=== PATIENT | female | born 1990 | race Caucasian/White ===

== ENCOUNTER 2018-09-13 08:50 | Outpatient (CLI) | payer MEDICAID, SELFPAY ==
[2018-09-13 10:13] LABS: Abs Immature Grans 0.01 k/cumm (0.0-0.09); Absolute Basophil Count 0.03 k/cumm (0.0-0.2); Absolute Eosinophil Count 0.13 k/cumm (0.0-0.7); Absolute Lymphocyte Count 1.87 k/cumm (1.2-3.4); Absolute Monocyte Count 0.39 k/cumm (0.11-0.7); Absolute Neutrophil Count 2.01 k/cumm (1.2-6.7); Basophils % 0.7; Eosinophils % 2.9; HGB 13.7 g/dL (12.0-15.5); Immature Grans % 0.2; Lymphocytes % 42.1; Mean Corp. HGB Concentration 32.6 g/dL (32.0-36.0); Mean Platelet Volume 10.2 fL (8.0-11.0); Monocytes % 8.8; Neutrophils % 45.3; Platelet Count 244 x1000/uL (130-400); RBC 4.72 m/cumm (4.00-5.20); RBC Distribution Width 12.2 % (11.7-14.6); White Blood Cell Count 4.44 k/cumm (4.4-10.8)
[2018-09-13 10:53] LABS: ALT 33 U/L (12-78); AST 19 U/L (15-37); Albumin 3.4 g/dL (3.4-5.0); Alkaline Phosphatase 133 U/L (46-116); Anion Gap 9.2 mmol/L (3-11); BUN 14 mg/dL (7-18); Bilirubin, Total 0.2 mg/dL (0.2-1.0); CO2 25.8 mmol/L (21.0-32.0); CREATININE 0.65 mg/dL (0.55-1.02); Calcium 8.6 mg/dL (8.5-10.1); Chloride 107 mmol/L (98-107); Cholesterol 132 mg/dL (50-200); Glucose 90 mg/dL (70-100); HDL Cholesterol 38 mg/dL (40-60); LDL CHOLESTEROL 86 mg/dL (<100); Potassium 4.1 mmol/L (3.5-5.1); Sodium 142 mmol/L (136-145); T4 9.8 ug/dL (4.5-12.5); TSH 1.64 uIU/mL (0.358-3.74); Total Protein 6.9 g/dL (6.4-8.2); Triglyceride 78 mg/dL (30-150)
[2018-09-13 11:08] LABS: Vitamin B12 622 pg/mL (193-986)
[2018-09-13 11:13] LABS: FREE T4 1.09 ng/dL (0.76-1.46)
== END 2018-09-13 09:10 ==
PROVIDERS: PCP Family Medicine; Visit Provider Nurse Practitioner Psychiatric/Mental Health
DX: F43.10 Post-traumatic stress disorder, unspecified (principal)
CPT/HCPCS: 36415; 80053; 80061; 83721; 82607; 84436; 84439; 84443; 85025

== ENCOUNTER 2018-10-07 09:17 | Emergency (ER) | payer MEDICAID, SELFPAY ==
[2018-10-07 09:21] VITALS: BP 154/98; PULSE 96; RESP 16; TEMP 36.7; O2SAT 97
--- NOTE | 2018-10-07 09:21 | ED.GENADUL_ITS ---
Discharge Plan Disposition Patient Disposition: HOME Condition: Good Discharge Details Chief Complaint: RashLesion Clinical Impression: Abscess of Bartholin's gland Primary Care Provider: Catalina Maldonado ED Provider: Ben Silvestre Home Meds and New Rx's Prescriptions: New doxycycline hyclate 100 mg capsule 100 mg PO BID Qty: 14 RF: 0 fluconazole 150 mg tablet 150 mg PO ONCE Qty: 1 RF: 0 No Action Implanon 1 unit RF: 0 hydroxyzine HCl 25 mg Tablet 25 mg PO BID RF: 0 lisdexamfetamine [Vyvanse] 60 mg Capsule 60 mg PO QAM RF: 0 Discharge Instructions Instructions: Abscess (ED) Additional Instructions: Please take the antibiotic as directed, please take Tylenol and Motrin as needed for pain. Please follow-up with the obstetrics production pattern maker that we are setting you up with. If you notice any worsening of your symptoms, or any new symptoms such as vomiting, diarrhea, fever, chills, shortness of breath, chest pain, numbness, weakness, or fainting , please return immediately to the emergency department for reevaluation. Please follow up with your primary care provider as soon as possible for reassessment and reevaluation. As always, it was a pleasure participating in your medical care today. Referrals: Catalina Maldonado [Primary Care Provider] - Medical Decision Making This is a pleasant 28-year-old female with a past medical history of hidradenitis supra T Melissa. She presents today for an abscess on her left labia. She has had these in the past, however it has now become firm and hard. Patient denies any red flag systemic symptoms of fevers, chills, or tachycardia. Physical exam is otherwise benign. We will incise and drain the abscess, place a Word catheter, and get close follow-up with her obstetrics production pattern maker. Time out was taken to identify the correct patient, procedure, and site. Risks and benefits were discussed with the patient and consent was obtained. Ultrasound was used to locate the site of maximal fluid collection. The site was sterilized and draped in the typical fashion. Lidocaine 1% 5ml was instilled into the surrounding tissue. Appropriate analgesia was obtained. The abscess was incised with an 11 blade, and purulent material and blood were expressed. The wound was flushed with sterile saline under pressure irrigation. I initially attempted to place a Word catheter, however the patient would not tolerate this and felt that there was too much pain and pressure with the presence of the Word catheter, and so packed, cleaned, and dressed the wound with iodoform gauze. Blood loss was minimal. The patient tolerated the procedure well. There were no complications. Patient will be discharged home. We will set her up with OB follow-up. We discussed red flags which return patient understands. I have extensively reviewed the treatment plan and discharge instructions with the patient. I have addressed all patient concerns at this time. The patient was made aware of what symptoms to monitor for that would warrant a return to the emergency department. Discussed the plan with the patient, they demonstrate verbal understanding and agreement with our assessment and plan at this time. HPI General Date/Time Provider Initiated Documentation: 10/07/18 09:19 . HPI Narrative: This is a 28-year-old female with a past medical history of hidradenitis suprativa who presents today for evaluation of left labial abscess. She states that it is been present for the last 3 days, has had some yellowish greenish discharge, however over the last 12-24 hours it is notably grown in size, become mildly painful, and firm. She denies any systemic symptoms of fevers, chills, vomiting, diarrhea, vaginal discharge. She admits to previous episodes like this in the past secondary to her HS. patient denies any other associated symptoms. No other modifying factors. She denies any IV or illicit drug use. Related Data Home Medications Medication Instructions Recorded Confirmed Implanon 1 unit 10/22/15 11/30/15 doxycycline hyclate 100 mg PO BID #14 cap 10/07/18 fluconazole 150 mg PO ONCE #1 tab 10/07/18 hydroxyzine HCl 25 mg PO BID 10/07/18 10/07/18 lisdexamfetamine [Vyvanse] 60 mg PO QAM 10/07/18 10/07/18 Previous Rx's Medication Instructions Recorded doxycycline hyclate 100 mg PO BID #14 cap 10/07/18 fluconazole 150 mg PO ONCE #1 tab 10/07/18 Allergies Allergy/AdvReac Type Severity Reaction Status Date / Time SPIDER BITES Allergy Mild Swelling/Ed Uncoded 10/07/18 09:26 christiano Review of Systems Review of Systems All systems reviewed & are unremarkable except as noted in HPI and below PFSH Social History Smoking/Tobacco Use Status: Current-Occasional Exam Narrative Exam Narrative: 1.Const: Well-nourished, Well-developed, appearing stated age 2.Eyes: PERRL, no conjunctival injection, and symmetrical lids. 3.ENT: Atraumatic external nose and ears. Moist MM. Neck: Symmetric, trachea midline, No thyromegaly. 4.CVS: +S1/S2, No murmurs or gallops. Peripheral pulses 2+ and equal in all extremities. Brisk capillary refill in all extremities. 5.RESP: Unlabored respiratory effort. Clear to auscultation bilaterally. No wheezes rales or rhonchi 6.GI: Soft, Nontender/Nondistended, No hepatosplenomegaly. No guarding or rebound. 7.MSK: Normocephalic/Atraumatic, Extremities w/o deformity or ttp No cyanosis or clubbing, Normal movement of all extremities 8.Skin: Warm, Dry. No rashes or lesions. 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 Sensation grossly intact, no focal neurologic deficits. 10.Psych: (AAO) x3. Appropriate mood and affect Genital exam was performed with female nurse at bedside, genital exam demonstrates normal female genitalia with a small evidence of a Bartholin gland cyst/abscess. The area is tender. No active discharge at this time. The area is roughly 1.5 cm in diameter. No other abnormalities.
== END 2018-10-07 10:32 | disposition home or self-care (01) ==
LOC: ER 09:58
PROVIDERS: Emergency Provider Student in an Organized Health Care Education/Training Program; PCP Family Medicine
DX: N75.1 Abscess of Bartholin's gland (principal)
CPT/HCPCS: 10060; 87070; 87205

== ENCOUNTER 2018-11-29 12:45 | Emergency (ER) | payer MEDICAID, SELFPAY ==
[2018-11-29 12:53] VITALS: BP 137/90; PULSE 115; RESP 16; TEMP 37; O2SAT 98
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
== END 2018-11-29 13:39 | disposition home or self-care (01) ==
PROVIDERS: Emergency Provider Student in an Organized Health Care Education/Training Program; PCP Family Medicine
DX: R51 Headache (principal)
CPT/HCPCS: 99282

== ENCOUNTER 2019-01-18 11:31 | Outpatient (CLI) | payer MEDICAID, SELFPAY ==
--- NOTE | 2019-01-18 10:05 | NS.NUTBLAN_ITS ---
DESCRIPTION: Jordy Delgado presents with her son for nutrition consult for severe obesity and binge eating. She reports a history of all eating disorders including anorexia, bulimia, and now binge etaing disorders. She has had an elevated BMI most of her life. 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 Nutrition: Jordy describes eating everything, what she wants, and beyond fullness regularly. If there is food she doesn't want, she will drive to get what she wants. She describes not being able to recognize when to stop eating. Exercise: she states she can walk long distances but does not do strenuous exercise. She is limited now because there is no safe place to walk. Stress: Jordy reports high stress with separation, living with her family, finances, and ADD and h/o of self described trauma. ASSESSMENT/INTERVENTION: Introduction and getting to know Jordy and her food relationship and history. She was highly expressive regarding her situation and admitted her ADD was taking over the visit. Discussed her previous episodes with eating disorders and how she was helped. Initiated concept of mindful eating with identifying and paying attention to hunger/fullness. Described ways we feel hunger and asked her to think about what is motivating her to eat. Discussed distracted eating and paying attention to where and how she eats. PLAN: Jordy will pay attention to where her hunger comes from. She will attempt to identify her hunger on a scale when she thinks about eating. She wishes to return in 1 week.
== END 2019-01-18 11:51 ==
PROVIDERS: PCP Family Medicine; Visit Provider Dietitian, Registered
DX: F50.81 Binge eating disorder (principal); E66.9 Obesity, unspecified; Z71.3 Dietary counseling and surveillance
CPT/HCPCS: 97802

== ENCOUNTER 2019-03-02 09:23 | Emergency (ER) | payer MEDICAID, SELFPAY ==
[2019-03-02 09:26] VITALS: BP 155/72; PULSE 96; RESP 20; TEMP 36.9; O2SAT 99
--- NOTE | 2019-03-02 09:49 | W.ED.GENAD ---
Discharge Plan Disposition Patient Disposition: HOME Condition: Improving Discharge Details Chief Complaint: Cellulitis Clinical Impression: Axillary hidradenitis suppurativa Primary Care Provider: None,None ED Provider: Vipul Delarosa Home Meds and New Rx's Prescriptions: New cephalexin 500 mg capsule 500 mg PO TID 7 Days Qty: 21 RF: 0 Continued Implanon 1 unit RF: 0 [id number]-d-glucosamine Powder 1 miscellaneous DAILY RF: 0 Discharge Instructions Additional Instructions: Apply moist warm heat to area to speed healing. We will refer you for follow-up in surgery clinic. Take antibiotics as prescribed. Return for worsening or any other acute concern Medical Decision Making 28-year-old female with a history of hidradenitis suppurtiva. She presents with left axilla discomfort and mild area of 1-2 cm nodularity that is firm. There is no overlying erythema and I do not appreciate fluctuance. Discussed with her that I feel she is best served by a course of oral antibiotic and application of warm heat. She may benefit from referral to surgery in the outpatient setting for definitive management. She understands homecare as well as return precautions. HPI General Mode of arrival: ambulatory. Date/Time Provider Initiated Documentation: 03/02/19 09:35. Limitations to Documentation: no limitations. Information obtained by: patient. History of Present Illness 28 year old F presents to the emergency department with the chief complaint of Left axilla pain, described as similar to prior episodes, Quality is described as dull, and is localized to the chest and left. Patient reports no radiation. Patient started experiencing this day(s) and it has been constant. No relieving factors improve symptom(s), No exacerbating factors reported . Patient notes other (No drainage); denies fever/chills and rash. Patient did receive the following treatments prior to arrival, none Related Data Home Medications Medication Instructions Recorded Confirmed Implanon 1 unit 10/22/15 10/08/18 cephalexin 500 mg PO TID 7 Days #21 cap 03/02/19 [id number]-d-glucosamine 1 MISCELLANEOUS DAILY 03/02/19 Previous Rx's Medication Instructions Recorded cephalexin 500 mg PO TID 7 Days #21 cap 03/02/19 Allergies Allergy/AdvReac Type Severity Reaction Status Date / Time SPIDER BITES Allergy Mild Swelling/Ed Uncoded 03/02/19 09:32 christiano General Stated Complaint: Cellulitis NORMA: 3 Review of Systems Review of Systems 6 systems reviewed and otherwise negative [facility] Medical History Attention deficit disorder (ADD) (Acute) HELLP syndrome (HELLP), third trimester (Acute) Hidradenitis suppurativa (Acute) PTSD (post-traumatic stress disorder) (Acute) Anxiety (Chronic) Depression (Chronic) Surgical History History of (Chronic) Social History Smoking/Tobacco Use Status: Former Tobacco Use Alcohol Intake: never Drug use: Never Substance use type: former substance user Do you feel safe at home: Yes Do you feel safe in your relationship?: Yes Exam Narrative Exam Narrative: GEN: awake, alert, oriented 3. Pleasant, well groomed, interactive. HEAD: Normocephalic, atraumatic ENT: Mucous membranes moist, oropharynx unremarkable, External ear exam unremarkable EYES: PERRL, EOMI NECK: Full ROM, no AUDI, no menigismus CHEST/RESP: Nontender, clear to auscultation bilateral, no wheeze/rhonchi/rales. Left axilla has mild nodularity that is tender without significant overlying erythema. She has healing scar tissue from previous incision and drainage per I do not appreciate significant fluctuance. There is some induration. CARDIOVASCULAR: RRR, no murmur, rub cyn. 2+ Rad pulse bilateral ABDOMEN: Soft, nontender, no mass. +Bowel sounds EXT: Full ROM, no edema, no rash Neuro: Grossly normal neurologic exam, conversant, interactive. Psych: Speech fluent, thoughts congruent, affect normal Course Vital Signs Temperature 36.9 C 03/02/19 09:26 Pulse 96 H 03/02/19 09:26 Respiratory Rate 20 03/02/19 09:26 Blood Pressure 155/72 H 03/02/19 09:26 Pulse Oximetry 99 03/02/19 09:26 Temperature 36.9 C 03/02/19 09:26 Temperature Source Temporal Artery Scan 03/02/19 09:26 Pulse 96 H 03/02/19 09:26 Respiratory Rate 20 03/02/19 09:26 Respiratory Effort Non-Labored 03/02/19 09:26 Blood Pressure 155/72 H 03/02/19 09:26 Blood Pressure Position Sitting 03/02/19 09:26 Pulse Oximetry 99 03/02/19 09:26 Oxygen Delivery Method Room Air 03/02/19 09:26 Oxygen Flow Rate 0 03/02/19 09:26 Pain Level 8 03/02/19 09:26
--- NOTE | 2019-03-02 09:54 | ED.GENADUL_ITS ---
Discharge Plan Disposition Patient Disposition: HOME Condition: Improving Discharge Details Chief Complaint: Cellulitis Clinical Impression: Axillary hidradenitis suppurativa Primary Care Provider: None,None ED Provider: Vipul Delarosa Home Meds and New Rx's Prescriptions: New cephalexin 500 mg capsule 500 mg PO TID 7 Days Qty: 21 RF: 0 Continued Implanon 1 unit RF: 0 v-cstrmt-smloa-d-glucosamine Powder 1 miscellaneous DAILY RF: 0 Discharge Instructions Additional Instructions: Apply moist warm heat to area to speed healing. We will refer you for follow-up in surgery clinic. Take antibiotics as prescribed. Return for worsening or any other acute concern Medical Decision Making 28-year-old female with a history of hidradenitis suppurtiva. She presents with left axilla discomfort and mild area of 1-2 cm nodularity that is firm. There is no overlying erythema and I do not appreciate fluctuance. Discussed with her that I feel she is best served by a course of oral antibiotic and application of warm heat. She may benefit from referral to surgery in the outpatient setting for definitive management. She understands homecare as well as return precautions. HPI General Mode of arrival: ambulatory . Date/Time Provider Initiated Documentation: 03/02/19 09:35 . Limitations to Documentation: no limitations . Information obtained by: patient . History of Present Illness 28 year old F presents to the emergency department with the chief complaint of Left axilla pain, described as similar to prior episodes, Quality is described as dull, and is localized to the chest and left. Patient reports no radiation. Patient started experiencing this day(s) and it has been constant. No relieving factors improve symptom(s), No exacerbating factors reported . Patient notes other (No drainage); denies fever/chills and rash. Patient did receive the following treatments prior to arrival, none Related Data Home Medications Medication Instructions Recorded Confirmed Implanon 1 unit 10/22/15 10/08/18 cephalexin 500 mg PO TID 7 Days #21 cap 03/02/19 h-fbqaxb-jmulj-d-glucosamine 1 MISCELLANEOUS DAILY 03/02/19 Previous Rx's Medication Instructions Recorded cephalexin 500 mg PO TID 7 Days #21 cap 03/02/19 Allergies Allergy/AdvReac Type Severity Reaction Status Date / Time SPIDER BITES Allergy Mild Swelling/Ed Uncoded 03/02/19 09:32 christiano General Stated Complaint: Cellulitis NORMA: 3 Review of Systems Review of Systems 6 systems reviewed and otherwise negative [facility] Medical History Attention deficit disorder (ADD) (Acute) HELLP syndrome (HELLP), third trimester (Acute) Hidradenitis suppurativa (Acute) PTSD (post-traumatic stress disorder) (Acute) Anxiety (Chronic) Depression (Chronic) Surgical History History of (Chronic) Social History Smoking/Tobacco Use Status: Former Tobacco Use Alcohol Intake: never Drug use: Never Substance use type: former substance user Do you feel safe at home: Yes Do you feel safe in your relationship?: Yes Exam Narrative Exam Narrative: GEN: awake, alert, oriented 3. Pleasant, well groomed, interactive. HEAD: Normocephalic, atraumatic ENT: Mucous membranes moist, oropharynx unremarkable, External ear exam unremarkable EYES: PERRL, EOMI NECK: Full ROM, no AUDI, no menigismus CHEST/RESP: Nontender, clear to auscultation bilateral, no wheeze/rhonchi/rales. Left axilla has mild nodularity that is tender without significant overlying erythema. She has healing scar tissue from previous incision and drainage per I do not appreciate significant fluctuance. There is some induration. CARDIOVASCULAR: RRR, no murmur, rub cyn. 2+ Rad pulse bilateral ABDOMEN: Soft, nontender, no mass. +Bowel sounds EXT: Full ROM, no edema, no rash Neuro: Grossly normal neurologic exam, conversant, interactive. Psych: Speech fluent, thoughts congruent, affect normal Course Vital Signs Temperature 36.9 C 03/02/19 09:26 Pulse 96 H 03/02/19 09:26 Respiratory Rate 20 03/02/19 09:26 Blood Pressure 155/72 H 03/02/19 09:26 Pulse Oximetry 99 03/02/19 09:26 Temperature 36.9 C 03/02/19 09:26 Temperature Source Temporal Artery Scan 03/02/19 09:26 Pulse 96 H 03/02/19 09:26 Respiratory Rate 20 03/02/19 09:26 Respiratory Effort Non-Labored 03/02/19 09:26 Blood Pressure 155/72 H 03/02/19 09:26 Blood Pressure Position Sitting 03/02/19 09:26 Pulse Oximetry 99 03/02/19 09:26 Oxygen Delivery Method Room Air 03/02/19 09:26 Oxygen Flow Rate 0 03/02/19 09:26 Pain Level 8 03/02/19 09:26
[2019-03-02 15:54] VITALS: BP 155/72; PULSE 96; RESP 20; TEMP 36.9; O2SAT 99
--- NOTE | 2019-03-03 08:29 | PDOC.ERCMPRO ---
Care Management Progress Note 03/03-Dr. Delarosa requested assistance with a surgical f/u in 1-2 week for hydra adenitis suppurtiva. Referral faxed to [facility] this am. Patient is listed as no PCP but has been seen at [facility] and can go back there. Chart updated to reflect.
--- NOTE | 2019-03-03 08:30 | CMPROGNOTE_ITS ---
Care Management Progress Note 03/03-Dr. Delarosa requested assistance with a surgical f/u in 1-2 week for hydra adenitis suppurtiva. Referral faxed to [facility] this am. Patient is listed as no PCP but has been seen at [facility] and can go back there. Chart updated to reflect.
== END 2019-03-02 10:05 | disposition home or self-care (01) ==
PROVIDERS: Emergency Provider Emergency Medicine; PCP Nurse Practitioner Family
DX: L73.2 Hidradenitis suppurativa (principal)
CPT/HCPCS: 99283

== ENCOUNTER 2019-06-13 15:21 | Emergency (ER) | payer MEDICAID, SELFPAY ==
[2019-06-13 15:30] VITALS: BP 152/91; PULSE 77; RESP 16; TEMP 36.5; O2SAT 97
--- NOTE | 2019-06-13 15:41 | W.ED.GENAD ---
Discharge Plan Disposition Patient Disposition: HOME Condition: Stable Discharge Details Chief Complaint: Laceration Clinical Impression: Leg wound, right Primary Care Provider: Priscila,Local ED Provider: Vinicio Zelaya Home Meds and New Rx's Prescriptions: No Action Implanon 1 unit RF: 0 Discharge Instructions Additional Instructions: keep the wound covered while it is healing with a large band aid. if it bleeds hold pressure if redness spreads away from the wound, you have severe pain or yellow/white discharge return to the emergency department Medical Decision Making 28 yo female comes in with right lateral mid lower leg wound. She states her significant other decided he didn't want to use disposable one time use shaving blades and put them in the garbage which she wasn't aware of. She was taking the trash out last night and one of the blades caused the wound in her leg, no loc or other injuries. Her mother was concerned about it today so told her to come here for an eval. She has a superficial abrasion of the above area that is about 2cm in length and not deep enough to need stitches. ADvised covering prn and if signs of infection develop to return Differential Diagnosis abrasion, laceration HPI General Mode of arrival: ambulatory. Date/Time Provider Initiated Documentation: 06/13/19 15:35. Limitations to Documentation: no limitations. Information obtained by: patient. History of Present Illness 28 year old F presents to the emergency department with the chief complaint of right leg wound, described as mild, with intensity rated at 2. Quality is described as aching, and is localized to the right and lower extremity. Patient reports no radiation. Patient started experiencing this day(s) (1) and it has been constant. No relieving factors improve symptom(s), No exacerbating factors reported . Patient notes no other symptoms.. Patient did receive the following treatments prior to arrival, none Related Data Home Medications Medication Instructions Recorded Confirmed Implanon 1 unit 10/22/15 03/21/19 Allergies Allergy/AdvReac Type Severity Reaction Status Date / Time SPIDER BITES Allergy Mild Swelling/Ed Uncoded 06/13/19 15:32 christiano General Stated Complaint: Laceration NORMA: 4 Review of Systems Review of Systems All systems reviewed & are unremarkable except as noted in HPI and below Constitutional Denies chills, Denies fever(s) and Denies weakness Cardiovascular Denies chest pain and Denies dyspnea Respiratory Denies dyspnea Gastrointestinal Denies abdominal pain, Denies nausea and Denies vomiting Musculoskeletal Denies joint swelling Neurologic Denies weakness [facility] Medical History (Updated 03/21/19 @ 16:43 by Leann Camilo DO) Anxiety (Chronic) Attention deficit disorder (ADD) (Acute) Depression (Chronic) HELLP syndrome (HELLP), third trimester (Acute) Hidradenitis suppurativa (Acute) Hidradenitis suppurativa (Acute) PTSD (post-traumatic stress disorder) (Acute) Surgical History History of (Chronic) Social History Smoking/Tobacco Use Status: Former Tobacco Use Alcohol Intake: never Drug use: Never Substance use type: former substance user Do you feel safe at home: Yes Do you feel safe in your relationship?: Yes Exam Const General: no acute distress Orientation: alert HENMT Head: normal to inspection Ears: external ears normal General nose exam: external nose normal Mouth: moist mucous membranes Eyes General: appearance normal, both eyes and all related structures Neck Neck: normal visual inspection Resp Effort & Inspection: normal respiratory effort and able to speak in complete sentences Cardio Rate: regular rate Skin General skin exam: elasticity normal Neuro General: alert and oriented x3 Extrem General: normal to inspection Psych Mental Status: mental status grossly normal Course Vital Signs Temperature 36.5 C 06/13/19 15:30 Pulse 77 06/13/19 15:30 Respiratory Rate 16 06/13/19 15:30 Blood Pressure 152/91 H 06/13/19 15:30 Pulse Oximetry 97 06/13/19 15:30 Temperature 36.5 C 06/13/19 15:30 Temperature Source Skin 06/13/19 15:30 Pulse 77 06/13/19 15:30 Respiratory Rate 16 06/13/19 15:30 Respiratory Effort Non-Labored 06/13/19 15:30 Blood Pressure 152/91 H 06/13/19 15:30 Blood Pressure Position Supine 06/13/19 15:30 Pulse Oximetry 97 06/13/19 15:30 Oxygen Delivery Method Room Air 06/13/19 15:30 Oxygen Flow Rate 0 06/13/19 15:30 Pain Level 2 06/13/19 15:30
== END 2019-06-13 16:00 | disposition home or self-care (01) ==
PROVIDERS: Emergency Provider Emergency Medicine
DX: S81.811A Laceration without foreign body, right lower leg, initial encounter (principal); W26.8XXA Contact with other sharp object(s), not elsewhere classified, initial encounter
CPT/HCPCS: 90471; 99282

== ENCOUNTER 2019-11-28 07:26 | Emergency (ER) | payer MEDICAID, SELFPAY ==
[2019-11-28 07:31] VITALS: BP 161/78; PULSE 73; RESP 16; TEMP 37; O2SAT 98
--- NOTE | 2019-11-28 07:39 | W.ED.GENAD ---
Discharge Plan Disposition Patient Disposition: HOME Condition: Stable Discharge Details Chief Complaint: Anxiety Clinical Impression: Depression Primary Care Provider: None,None ED Provider: Chelsy James Home Meds and New Rx's Prescriptions: New venlafaxine 37.5 mg capsule,extended release 24hr 37.5 mg PO DAILY Qty: 30 RF: 0 lorazepam [Ativan] 0.5 mg tablet 0.5 mg PO QHS PRN (Reason: anxiety) Qty: 4 RF: 0 Continued Implanon 1 unit RF: 0 Discharge Instructions Instructions: Lorazepam (By mouth), Venlafaxine (By mouth), Depression (ED), Anxiety (ED), Anxiolysis in Adults (ED) Additional Instructions: Please return immediately to the emergency department if you develop any new or worsening symptoms, if your condition does not improve as expected, or if you become otherwise concerned. It is extremely important that you attend your appointment with Gloria Borja at [facility] on 12/02/2019 at 1:15 PM as scheduled. You have been prescribed Ativan to help with anxiety at bedtime. This is a sedating medication, and it is very important that you take it only as prescribed. Please do not take Ativan within 6 hours of taking any other sedating or sleep medications, including opiate pain medications. Do not use alcohol or any other recreational drugs well taking Ativan. Do not drive, operate machinery, or make important decisions while taking Ativan. Referrals: Gloria Borja [NURSE PRACTITIONER] - Discharge Data Discharge Date/Time-TO BE ENTERED AT DEPARTURE: 11/28/19 13:40 Medical Decision Making Jordy Delgado is a 29-year-old woman with a history of anxiety, depression, tension deficit disorder, GERD who presented to the emergency department with worsening of her anxiety and depression over the past few months, reportedly worsened by recent financial problems. On exam patient is well and nontoxic appearing. She has benign cardiopulmonary exam. Neurologic exam is grossly nonfocal. She is calm and pleasant with good eye contact, does have somewhat depressed mood. Normal behavior. No suicidal or homicidal ideation. Patient has decision-making capacity. Concern for significant anxiety and depression, in addition to problematic socioeconomic situation. Exam/history is not consistent with patient being an immediate risk to herself or to others, other acute emergent life-threatening process. Plan for mental health evaluation, care management intervention. Patient seen by mental health, mental health agrees no need for acute inpatient treatment at this time, she will refer patient for restart of mental health counseling. Mental health requesting possible initiation of SSRI. Care management to see patient to establish PCP and facilitate access to [facility]. Patient seen by care management, care management provided resource to patient, also set up initial appointment for PCP this Thursday (Gloria Borja). Patient reports feeling relieved by discussion with both mental health and care management, patient reports feeling that she believes she has good options as an outpatient at this point. She continues to deny SI or any intent to harm herself. Patient states that she would like to begin taking an SSRI. I did call the outpatient office, IV are not available, I discussed patient history, presentation Dr. Sands who is a physician in that office. He recommended venlafaxine 37.5 XR, or an SSRI the patient had been taking in the past if that was helpful for her in the past. I discussed this with patient, patient reports that meds she had been as a teenager were not helpful and she stopped taking them because of this. Plan for venlafaxine 37.5. Also plan for short course of Ativan to help with nighttime anxiety until patient is seen by PCP. Medical Records Medical records reviewed: Yes I reviewed the patient's medical records. HPI General Mode of arrival: ambulatory. Date/Time Provider Initiated Documentation: 11/28/19 07:38. Limitations to Documentation: no limitations. Information obtained by: patient, RN notes reviewed and old records reviewed. HPI Narrative: Jordy Delgado is a 29-year-old woman with a history of GERD, depression, attention deficit disorder presenting to the emergency department with depression and anxiety. Patient reports that she has a long history of depression, but she reports that recently her depression has become much worse. She also reports that she has been having anxiety, causing her to have difficulty sleeping at night. Patient reports that her depressive symptoms are more troublesome for her than her anxiety symptoms. Patient reports that July 2019 her car broke down, and this caused her to lose her job. Patient reports that she has been working to get assistance from the state since that time, but has been essentially unsuccessful. She remains unemployed, and she has moved back in with her parents. She has had difficulty establishing care with a PCP. Patient reports that she has 2-year-old son. Patient reports that the logistics of trying to get a new job and caring for her son and her difficult financial situation have made her symptoms worse. Patient reports that she has history of cutting in the past, although has not cut herself for over a year. She uses an elastic wrist band to snap against her wrist, and otherwise does not self-harm. Patient reports that she does not want to and has no intent to hurt herself, and is here to get help for her depression and anxiety. Patient reports that she feels safe at home. She reports that nobody is attempting to harm her. She denies suicidal thoughts, homicidal thoughts or intent. Patient reports that her father keeps guns somewhere in the house but she does not think that ammunition is kept at them and has no idea where the guns or ammunition are. Patient reports that she has seen mental health professionals in the past, but due to loss of insurance and difficulty keeping appointments with work schedules she has not seen mental health professional in a long time. Patient reports that she has had generalized myalgias for months that she attributes to her depression, this is unchanged today. She denies any other pain. She reports intermittent diarrhea over the past 2 weeks that she attributes to her anxiety. She denies fevers, shortness of breath, cough, vomiting, rash. Patient reports that overall she has been eating and drinking as usual, although she states that because of her depression she goes to periods where she does not feel like eating or she overeats. Related Data Home Medications Medication Instructions Recorded Confirmed Implanon 1 unit 10/22/15 03/21/19 lorazepam [Ativan] 0.5 mg PO QHS PRN #4 tab 11/28/19 venlafaxine 37.5 mg PO DAILY #30 cap 11/28/19 Previous Rx's Medication Instructions Recorded lorazepam [Ativan] 0.5 mg PO QHS PRN #4 tab 11/28/19 venlafaxine 37.5 mg PO DAILY #30 cap 11/28/19 Allergies Allergy/AdvReac Type Severity Reaction Status Date / Time SPIDER BITES Allergy Mild Swelling/Ed Uncoded 11/28/19 07:36 christiano General Stated Complaint: Anxiety NORMA: 3 Review of Systems Narrative: Constitutional: denies fevers Eyes: denies eye pain ENT: denies ear pain, dental pain, sore throat Cardiovascular: denies chest pain Respiratory: denies SOB, cough GI: denies abdominal pain, vomiting, reports diarrhea : denies flank pain MSK: denies back pain, neck pain, arthralgias, reports chronic unchanged generalized myalgias Skin: denies rash Neuro: denies headaches, numbness, weakness [facility] Medical History Anxiety (Chronic) Attention deficit disorder (ADD) (Acute) Depression (Chronic) HELLP syndrome (HELLP), third trimester (Acute) Hidradenitis suppurativa (Acute) Hidradenitis suppurativa (Acute) PTSD (post-traumatic stress disorder) (Acute) Surgical History History of (Chronic) Social History Smoking/Tobacco Use Status: Former Tobacco Use Alcohol Intake: never Drug use: Never Substance use type: former substance user Do you feel safe at home: Yes Do you feel safe in your relationship?: Yes Exam Narrative Exam Narrative: Constitutional: well and [id number], pleasant, good eye contact, conversing normally HENT: head atraumatic/normocephalic/normal inspection, mucous membranes moist Eyes: conjunctiva normal, sclera normal, pupils 3mm b/l Neck: no stridor, normal ROM, trachea midline Chest: normal inspection Resp: normal work of breathing, LCTAB Cardio: normal rate, normal rhythm, no murmur appreciated Skin: warm, dry, normal color, no rash Neuro: alert, not altered, grossly non-focal, normal tone Ext: Moving all extremities equally Psych: Somewhat depressed mood, normal affect, normal behavior, no hallucinations, no magi Course Vital Signs Vital signs: Vital Signs Temperature 37 C 11/28/19 07:31 Pulse 73 11/28/19 07:31 Respiratory Rate 16 11/28/19 07:31 Blood Pressure 161/78 H 11/28/19 07:31 Pulse Oximetry 98 11/28/19 07:31 Temperature 37 C 11/28/19 07:31 Temperature Source Skin 11/28/19 07:31 Pulse 73 11/28/19 07:31 Respiratory Rate 16 01/06/20 07:31 Respiratory Effort Non-Labored 11/28/19 07:31 Blood Pressure 161/78 H 11/28/19 07:31 Pulse Oximetry 98 11/28/19 07:31 Oxygen Delivery Method Room Air 11/28/19 07:31 Oxygen Flow Rate 0 11/28/19 07:31 Pain Level 4 11/28/19 07:31
[2019-11-28 07:40] VITALS: RESP 16
[2019-11-28 09:20] VITALS: BP 147/77; PULSE 65; TEMP 37.3
--- NOTE | 2019-11-28 10:21 | PDOC.MHCN ---
Date of service: 11/28/19 Time of Service: 10:21 Mental Health Crisis Note Presenting Issue How did you arrive at the ED and why did you come: Brooke brought herself to the ER at the request of her mother due to severe anxiety and depression. Precipitating Factors Brooke is a 29 y.o. SWF who presents to the ER for increase in symptoms of depression and anxiety. She reported that she feels like she is in the middle of the ocean and has gone as far as she can and wants to go back to the shore but she is in a current that keeps her where she is. She said I'm not moving back and I'm not moving forward. Brooke in addition to her struggles with symptoms is struggling with financial resources to care for herself and her son independetly. She said if it were not for her parents she would be homeless. A denied SI and HI. She stated that she had one instance of SI thoughts when she was a teen and she was on antidepressants at that time. A appears exhausted and tearful. She has poor hygiene as evidenced by oily hair and an sweaty body odor. Disposition BEHAVIOR: A is engaged and appropriate throughout the assessment. She is seeking help appropriately. She is a non behavior Pt. EYE CONTACT: A makes good eye contact. MOOD: A's mood appears depressed and tired. AFFECT: A's affect is tearful and exhausted. APPETITE: A reported that she flip flops between not eating and over eating. Nothing consistently. SLEEP(trouble falling/staying asleep: A reports anxiety attacks that have kept her from sleeping well or restfully. Plan I will do an in house referral to get A back into counseling. I have spoken to Care management who will assist A in getting into [facility] and set up with a PCP. She is seeking medications for her depression, anxiety and sleep. Provisional Diagnosis depressive d/o unspecified anxiety d/o unspecified Signature Clinician's Name/Title: Lupe Salazar MS emergency services Clinician
--- NOTE | 2019-11-28 10:56 | NUR.NOTE ---
Nursing Note: ordered lunch
--- NOTE | 2019-11-30 09:59 | PDOC.ERCMPRO ---
- If Service Date Differs Date of service: 11/28/19 Time of Service: 09:59 Care Management Progress Note S/O: CM met with patient in the ED she states that she has been feeling overwhelmed and anxious. She states that it seems to be getting worse over the last few months. She states that since her car broke down she had to quit her job, she has been trying to obtain reach up. She reports that she keeps running into barriers when trying to obtain assistance. She also does not have a primary care provider locally and feels that she needs her depression and anxiety need to be treated. She does have medicaid in place. LOGAN met with Jordy at length she is agreeable to new primary care at [facility] she will have Gloria Borja NP. CM scheduled her appointment with Gloria for 12/02/19. CM referred her to [facility], and [facility] which she agrees to. Jordy will start on antidepressants today and have close follow up with new provider. Jordy does have transportation to the provider CM reviewed [facility] services with her in addition to her Mother's vehicle. CM received contact back from [facility] that they will begin outreaching the patient and enrol in services. P: New primary care appointment on 12/02/19 at 1315 scheduled with MANDY Perry. Referral [facility] and [facility]. Mental health will refer her to [facility] for services.
== END 2019-11-28 13:40 | disposition home or self-care (01) ==
PROVIDERS: Emergency Provider Student in an Organized Health Care Education/Training Program; PCP Nurse Practitioner Family
DX: F41.8 Other specified anxiety disorders (principal); G47.8 Other sleep disorders; Z59.9 Problem related to housing and economic circumstances, unspecified
CPT/HCPCS: 99283

== ENCOUNTER 2020-01-03 15:38 | Outpatient (CLI) | payer MEDICAID, SELFPAY ==
--- NOTE | 2020-01-03 15:52 | DI.RAD_ITS ---
EXAM: XR HUMERUS LT INDICATION: CONTRACEPTIVE MANAGEMENT, Z30.9, NEXPLANON PLACED 3 YRS AGO. COMPARISON: No exams were available for comparison TECHNIQUE: 2D digital imaging was performed. FINDINGS: There is an elongated radiopacities seen in the subcutaneous fat of the in the anterior medial dista l arm. This is consistent with the Nexplanon implant. No bony abnormalities are identified. IMPRESSION: Nexplanon implant is seen in the anteromedial distal arm.
== END 2020-01-03 15:58 ==
PROVIDERS: Visit Provider Nurse Practitioner Family
DX: Z30.46 Encounter for surveillance of implantable subdermal contraceptive (principal)
CPT/HCPCS: 73060

== ENCOUNTER 2020-01-05 13:45 | Outpatient (REF) | payer MEDICAID, SELFPAY ==
--- NOTE | 2020-01-05 11:00 | PAPFT_PTH ---
PATIENT: Jordy Delgado LOC: [facility] U#:[id number] AGE/SX: 29/F ROOM: RE01/05/[address]: Gloria Borja : 1990 BED: DIS: 01/05/2020 SPEC #: [id number] RECD: 01/06/20 12:57 STATUS: TAMIE RELaisha #: [id number] RUKHSANA: 01/05/20 11:[address]: Gloria Borja DEPT: [facility] Cytology RECD BY: Monique Rawls ENTERED: 01/06/20 12:57 SP TYPE: PAPFT OTHR DR: None Tissues: 1 - CX/ENDOCX FOR PAP SMEARS Procedures: PAP THIN PREP/UVM Screening Comments: [id number] (CHLAMYDIA/GC)
[2020-01-09 13:23] LABS: Chlamydia Result Negative (Negative); GC Result Negative (Negative)
== END 2020-01-05 14:05 ==
LOC: NCHCN 13:45
PROVIDERS: Visit Provider Nurse Practitioner Family
DX: Z00.00 Encounter for general adult medical examination without abnormal findings (principal); Z12.4 Encounter for screening for malignant neoplasm of cervix; Z01.419 Encounter for gynecological examination (general) (routine) without abnormal findings; Z11.3 Encounter for screening for infections with a predominantly sexual mode of transmission
CPT/HCPCS: 87491; 87591; 88142

== ENCOUNTER 2020-02-23 09:41 | Outpatient (CLI) | payer MEDICAID, SELFPAY ==
[2020-02-25 13:19] LABS: SARS-CoV-2 RNA Undetected (Undetected); SARS-CoV-2 Specimen Source Nasopharynx
== END 2020-02-23 10:01 ==
PROVIDERS: Visit Provider Nurse Practitioner Family
DX: Z11.59 Encounter for screening for other viral diseases (principal)
CPT/HCPCS: U0003

== ENCOUNTER 2020-05-30 01:42 | Outpatient (CLI) | payer MEDICAID, SELFPAY ==
--- NOTE | 2020-05-30 10:47 | DI.RAD_ITS ---
EXAM: XR HAND RT COMPLETE CLINICAL HISTORY: RT HAND PAIN, M79.641. TECHNIQUE: 2D digital imaging was performed. COMPARISON: No exams were available for comparison FINDINGS: BONES: No acute fracture is present. No bony destructive lesion is seen. JOINTS: No dislocation present. SOFT TISSUE: Normal. IMPRESSION: Unremarkable radiographs of the right hand. DATA REPOSITORY: RADIATION DOSE DELIVERED:
== END 2020-05-30 02:02 ==
PROVIDERS: Visit Provider Family Medicine
DX: M79.641 Pain in right hand (principal)
CPT/HCPCS: 73130

== ENCOUNTER 2020-06-19 07:49 | Emergency (ER) | payer MEDICAID, SELFPAY ==
[2020-06-19 07:54] VITALS: BP 132/107; PULSE 100; RESP 22; TEMP 36.5; O2SAT 97
--- NOTE | 2020-06-19 08:03 | ED.GENADUL_ITS ---
Discharge Plan Disposition Patient Disposition: HOME Discharge Details Chief Complaint: GenMedical Clinical Impression: Myalgia Primary Care Provider: Danica Wei ED Provider: Rene Rivera Home Meds and New Rx's Prescriptions: New doxycycline hyclate 100 mg capsule 100 mg PO BID 21 Days Qty: 42 RF: 0 Continued Implanon 1 unit RF: 0 venlafaxine 37.5 mg capsule,extended release 24hr 37.5 mg PO DAILY Qty: 30 RF: 0 lorazepam [Ativan] 0.5 mg tablet 0.5 mg PO QHS PRN (Reason: anxiety) Qty: 4 RF: 0 Discharge Instructions Instructions: Lyme Disease (ED), Musculoskeletal Pain (ED) Additional Instructions: Work-up in the ER did not reveal any obvious emergent process however your story associated with a recent tick bite is certainly concerning for Lyme disease or any other potential tickborne disease. Doxycycline as directed. This medication can cause sensitivity, be sure to avoid direct sunlight. [id number] Tylenol and/or Motrin as directed for discomfort. Please watch for new or worsening symptoms and return to the ER for any concerns. I do recommend you contact your primary care provider later today or tomorrow for prompt outpatient reevaluation. Discharge Data Discharge Date/Time-TO BE ENTERED AT DEPARTURE: 06/19/20 14:40 Medical Decision Making 29-year-old female presents with body aches, joint pain, fatigue that began rather abruptly Thursday morning around 3 AM. She was stung by something on her right shoulder the night before. Does believe that she was bit by a tick 2-3 weeks ago. Clinically she appears well, nontoxic. She does present with mild hypertension and tachycardia. Examination does not reveal any obvious bull's- eye rash nor does there appear to be cellulitis around the insect stings. Given her tick bite history 2-3 weeks ago associate with myalgias, fatigue, joint pain, certainly cannot rule out a tickborne illness. She does report that the pain is worse with movement however also worse with deep breaths, does have mild tachycardia. Given this I do believe obtaining EKG and d-dimer is reasonable for further evaluation of PE although lower on my differential. Initial blood pressure did reveal mild hypertension at 132/107, blood pressure did trend down slightly throughout her visit, just prior to discharge was 125/66 with pulse of 77. Laboratory values reveal a white count of 7.09 hemoglobin 13.9 hematocrit 42.2 platelet count 288. Absolute monocytes 0.72. D-dimer was 642. Electrolytes unremarkable, creatinine of 0.78 with a GFR greater than 60. Alkaline phosphatase slightly elevated at 125 although this appears to be near baseline. Initial troponin was less than 0.05. Urinalysis reveals blood in the urine however no signs of obvious infection. She does report actively having her menstrual cycle. Given the elevated white dimer will obtain chest CTA. Patient requests medication for her discomfort. 1 g p.o. Tylenol given. She is already received 1 L IV fluid. CTA is unremarkable as read by radiology. Discussed CTA findings and laboratory values with patient. It should be noted that the CTA was delayed because she initially had an IV in her left AC however on that brought her to CT it would not flush so she was brought back to the ER for another IV placement which delayed her CT. She is now requesting food, given a sandwich and able to tolerate p.o. without difficulty. Also given 30 IV Toradol. She appears well, nontoxic. We discussed her repeat troponin which was less than 0.05. No clear emergent process identified. Both her blood pressure and pulse has trended down. She is afebrile. There is no obvious bull's-eye rash. Given her diffuse myalgias and joint pain, and correlation with a tick bite 2-3 weeks ago, we discussed the possibility of a tickborne disease and initiating doxycycline therapy while her labs are pending. She is quite comfortable with this plan. First dose of p.o. doxycycline given. She understands that her labs are pending. She will reach out to her primary care provider later today or tomorrow to discuss outpatient therapy go over her labs. She was encouraged to watch for new or worsening symptoms and return immedia tely to the ER. Medical Records Medical records reviewed: Yes I reviewed the patient's medical records. Lab Data Lab results reviewed: Yes I reviewed the patient's lab results. Lab results narrative: Laboratory Tests Range/Units 06/19/20 06/19/20 06/19/20 09:20 09:20 09:20 WBC (4.4-10.8) k/cumm 7.09 RBC (4.00-5.20) m/cumm 4.73 Hgb (12.0-15.5) g/dL 13.9 Hct (36.0-46.0) % 42.2 MCV (80-95) fL 89.2 MCH (27.0-33.0) pg 29.4 MCHC (32.0-36.0) g/dL 32.9 RDW (11.7-14.6) % 12.3 Plt Count (130-400) x1000/uL 288 MPV (8.0-11.0) fL 9.8 Immature Gran % % 0.1 Neutrophils % 51.6 Lymphocytes % 36.5 Monocytes % 10.2 Eosinophils % 1.0 Basophils % 0.6 Absolute Neutrophils (1.2-6.7) k/cumm 3.66 Absolute Lymphocytes (1.2-3.4) k/cumm 2.59 Absolute Monocytes (0.11-0.7) k/cumm 0.72 H Absolute Eosinophils (0.0-0.7) k/cumm 0.07 Absolute Basophils (0.0-0.2) k/cumm 0.04 PT (9.3-11.0) sec 10.7 INR (0.9-1.1) 1.1 APTT (21.0-31.4) sec 27.0 D-Dimer (<500) ng/mlFEU 642 H Sodium (136-145) mmol/L 141 Potassium (3.5-5.1) mmol/L 3.8 Chloride (98-107) mmol/L 106 Carbon Dioxide (21.0-32.0) mmol/L 24.1 Anion Gap (3-11) mmol/L 10.9 BUN (7-18) mg/dL 9 Creatinine (0.55-1.02) mg/dL 0.78 Estimated GFR/1.73 m2 (mL/min/1.73m2) >= 60.00 Glucose (74-106) mg/dL 93 Calcium (8.5-10.1) mg/dL 8.8 Magnesium (1.8-2.4) mg/dL 1.9 Total Bilirubin (0.2-1.0) mg/dL 0.5 AST (15-37) U/L 23 ALT (14-59) U/L 52 Alkaline Phosphatase (46-116) U/L 125 H Troponin I (<0.06) ng/mL < 0.05 Total Protein (6.4-8.2) g/dL 7.4 Albumin (3.4-5.0) g/dL 3.5 Urine Color (Yellow) Urine Clarity (Clear) Urine pH (5-8) Ur Specific [place] (1.005-1.025) Urine Protein (Negative) mg/dL Urine Ketones (Negative) mg/dL Urine Blood (Negative) Urine Nitrite (Negative) Urine Bilirubin (Negative) Urine Urobilinogen (Up TO 0.2) EU/dL Ur Leukocyte Esterase (Negative) Urine RBC (0-2) HPF Urine WBC (0-5) HPF Ur Epithelial Cells (Negative) HPF Urine Crystals (Negative) HPF Urine Bacteria (Negative) HPF Urine Casts (Negative) LPF Urine Mucus (Negative) Ur Culture Indicated? Urine Glucose (Negative) mg/dL Range/Units 06/19/20 06/19/20 10:03 11:28 WBC (4.4-10.8) k/cumm RBC (4.00-5.20) m/cumm Hgb (12.0-15.5) g/dL Hct (36.0-46.0) % MCV (80-95) fL MCH (27.0-33.0) pg MCHC (32.0-36.0) g/dL RDW (11.7-14.6) % Plt Count (130-400) x1000/uL MPV (8.0-11.0) fL Immature Gran % % Neutrophils % Lymphocytes % Monocytes % Eosinophils % Basophils % Absolute Neutrophils (1.2-6.7) k/cumm Absolute Lymphocytes (1.2-3.4) k/cumm Absolute Monocytes (0.11-0.7) k/cumm Absolute Eosinophils (0.0-0.7) k/cumm Absolute Basophils (0.0-0.2) k/cumm PT (9.3-11.0) sec INR (0.9-1.1) APTT (21.0-31.4) sec D-Dimer (<500) ng/mlFEU Sodium (136-145) mmol/L Potassium (3.5-5.1) mmol/L Chloride (98-107) mmol/L Carbon Dioxide (21.0-32.0) mmol/L Anion Gap (3-11) mmol/L BUN (7-18) mg/dL Creatinine (0.55-1.02) mg/dL Estimated GFR/1.73 m2 (mL/min/1.73m2) Glucose (74-106) mg/dL Calcium (8.5-10.1) mg/dL Magnesium (1.8-2.4) mg/dL Total Bilirubin (0.2-1.0) mg/dL AST (15-37) U/L ALT (14-59) U/L Alkaline Phosphatase (46-116) U/L Troponin I (<0.06) ng/mL < 0.05 Total Protein (6.4-8.2) g/dL Albumin (3.4-5.0) g/dL Urine Color (Yellow) Yellow Urine Clarity (Clear) Sl cloudy Urine pH (5-8) 7.5 Ur Specific [place] (1.005-1.025) 1.025 Urine Protein (Negative) mg/dL 30 H Urine Ketones (Negative) mg/dL Negative Urine Blood (Negative) Large H Urine Nitrite (Negative) Negative Urine Bilirubin (Negative) Small H Urine Urobilinogen (Up TO 0.2) EU/dL 2.0 H Ur Leukocyte Esterase (Negative) Negative Urine RBC (0-2) HPF >50 H Urine WBC (0-5) HPF 0-2 Ur Epithelial Cells (Negative) HPF Few Urine Crystals (Negative) HPF Negative Urine Bacteria (Negative) HPF Negative Urine Casts (Negative) LPF 0-1 rbc Urine Mucus (Negative) Negative Ur Culture Indicated? No Urine Glucose (Negative) mg/dL Negative ECG Data Attestation: I personally reviewed and interpreted this ECG (s) as follows: Prior ECG tracings: available for review Interpretation: Interpreted and reviewed with Dr. Mccoy. Sinus rhythm, ventricular of 76. No STEMI. Please see her official read HPI General Mode of arrival: ambulatory . Date/Time Provider Initiated Documentation: 06/19/20 08:02 . Limitations to Documentation: no limitations . Information obtained by: patient . HPI Narrative: This is a 29-year-old female presenting to the ER reporting diffuse body wide muscular and joint pain that woke her from sleep around 3 AM on Thursday. She reports generalized fatigue, pain is worse with movement, and she did sustain a insect sting or bite to her right shoulder on Thursday. She reports that the bite was painful but she did not physically see the insect. She has not noticed any bull's-eye rash on her body. Later during the HPI she does remember being bit by a tick may be 2 or 3 weeks ago, was not seen at the time, was not sure how long the tick may have been on her. She reports mild dull headache, denies fever, neck pain, anterior chest pain, cough. She reports that her body wide pain is made worse with movement or deep breathing causing her to not want to breathe deeply. She denies shortness of breath. Denies abdominal pain, nausea, vomiting, diarrhea, dysuria, numbness, tingling, weakness. She denies recent sick contacts or travel. She does admit that her appetite is decreased and that she does have increased thirst, denies history of diabetes. She did take [id number] medication such as Tylenol and Motrin yesterday but did not take any today. Related Data Home Medications Medication Instructions Recorded Confirmed Implanon 1 unit 10/22/15 03/21/19 lorazepam [Ativan] 0.5 mg PO QHS PRN #4 tab 11/28/19 venlafaxine 37.5 mg PO DAILY #30 cap 11/28/19 doxycycline hyclate 100 mg PO BID 21 Days #42 cap 06/19/20 Previous Rx's Medication Instructions Recorded lorazepam [Ativan] 0.5 mg PO QHS PRN #4 tab 11/28/19 venlafaxine 37.5 mg PO DAILY #30 cap 11/28/19 doxycycline hyclate 100 mg PO BID 21 Days #42 cap 06/19/20 Allergies Allergy/AdvReac Type Severity Reaction Status Date / Time hydromorphone [From Dilaudid] Allergy Unverified 06/19/20 08:01 SPIDER BITES Allergy Mild Swelling/Ed Uncoded 06/19/20 08:01 christiano General Stated Complaint: GenMedical NORMA: 3 Review of Systems Constitutional Constitutional: Denies chills, Reports fatigue, Denies fever(s), Reports headache(s), Reports poor appetite and Denies weakness Eyes Eyes: Denies change in vision ENT Ears, Nose, Mouth, and Throat: Reports headache(s) and Denies sore throat Cardiovascular Cardiovascular: Denies chest pain and Denies dyspnea Respiratory Respiratory: Denies cough, Denies dyspnea and Denies wheezing Gastrointestinal Gastrointestinal: Denies abdominal pain, Denies nausea and Denies vomiting Genitourinary Genitourinary: Denies dysuria Musculoskeletal Musculoskeletal: Reports back pain, Reports myalgias, Reports arthralgias, Denies joint swelling, Denies numbness and Denies tingling Integumentary/Breasts Skin/Breast: Denies rash Neurologic Neurologic: Reports headache(s), Denies numbness, Denies tingling and Denies weakness Endocrine Endocrine: Reports fatigue Allergic/Immunologic Allergic/Immunologic: Denies wheezing [facility] Medical History Anxiety (Chronic) Attention deficit disorder (ADD) (Acute) Depression (Chronic) HELLP syndrome (HELLP), third trimester (Acute) Hidradenitis suppurativa (Acute) Hidradenitis suppurativa (Acute) PTSD (post-traumatic stress disorder) (Acute) Surgical History History of (Chronic) Social History Smoking/Tobacco Use Status: Former Tobacco Use Alcohol Intake: never Drug use: Never Substance use type: former substance user Do you feel safe at home: Yes Do you feel safe in your relationship?: Yes Exam Const General: cooperative, healthy appearing, comfortable and no acute distress Orientation: alert, awake and oriented x3 HENMT Head: normal to inspection, normocephalic and atraumatic Ears: external ears normal, TM's normal bilaterally and EAC's normal Mouth: moist mucous membranes Throat: posterior oropharynx normal Eyes Conjunctivae: conjunctivae normal Sclera: sclerae normal Neck Neck: normal visual inspection, full ROM, no lymphadenopathy, no meningeal signs, trachea midline and supple Chest Chest: normal inspection of the chest Resp Effort & Inspection: normal respiratory effort and able to speak in complete sentences Auscultation: clear to auscultation bilaterally Cardio Rate: tachycardic (102) Rhythm: regular rhythm GI Inspection: normal to inspection and obesity Palpation: soft and nontender Back/Spine/Pelvis Back: back tenderness (Diffuse) Thoracic/Lumbar Spine: other (Right scapula, insect bite, no evidence of infect ion) Skin Rashes: no rashes Neuro General: patient alert, patient awake, patient oriented x3, moves all extremities and no focal motor deficits Cognition: normal cognition Gait: normal gait Motor: muscle tone normal throughout and strength 5/5 throughout Sensory Exam: no sensory deficits noted Extrem General: normal to inspection, full ROM, capillary refill normal, no pedal edema and other (Diffuse muscular soft tissue discomfort) Psych Appearance: grossly normal Mental Status: mental status grossly normal Course Vital Signs Vital signs: Vital Signs Temperature 36.5 C 06/19/20 07:54 Pulse 100 H 06/19/20 07:54 Respiratory Rate 22 06/19/20 07:54 Blood Pressure 132/107 H 06/19/20 07:54 Pulse Oximetry 97 06/19/20 07:54 Temperature 36.5 C 06/19/20 07:54 Temperature Source Skin 06/19/20 07:54 Pulse 100 H 06/19/20 07:54 Respiratory Rate 22 06/19/20 07:54 Blood Pressure 132/107 H 06/19/20 07:54 Blood Pressure Position Sitting 06/19/20 07:54 Pulse Oximetry 97 06/19/20 07:54 Oxygen Delivery Method Room Air 06/19/20 07:54 Oxygen Flow Rate 0 06/19/20 07:54 Pain Level 5 06/19/20 07:54
--- NOTE | 2020-06-19 08:15 | RT.EKG_ITS ---
APPROVED REPORT Exam: Resting ECG Patient Location: E HR:76 bpm ECG Measurements Heart Rate 76 AXIS IA 143 P 8 QRSd 87 QRS 14 QT 393 T 28 QTc 443 <Conclusion> Sinus rhythm...normal P axis, V-rate 60- 99. S1Q3T3 No acute ST elevation or depression.
[2020-06-19] MEDS: Normal Saline 1,000 ML 1000 ML IV (09:23)
[2020-06-19 09:31] LABS: Abs Immature Grans 0.01 k/cumm (0.0-0.09); Absolute Basophil Count 0.04 k/cumm (0.0-0.2); Absolute Eosinophil Count 0.07 k/cumm (0.0-0.7); Absolute Lymphocyte Count 2.59 k/cumm (1.2-3.4); Absolute Monocyte Count 0.72 k/cumm (0.11-0.7); Absolute Neutrophil Count 3.66 k/cumm (1.2-6.7); Basophils % 0.6; HCT 42.2 % (36.0-46.0); HGB 13.9 g/dL (12.0-15.5); Immature Grans % 0.1 %; Lymphocytes % 36.5; Mean Corp. HGB Concentration 32.9 g/dL (32.0-36.0); Mean Corpuscular Hemoglobin 29.4 pg (27.0-33.0); Mean Corpuscular Volume 89.2 fL (80-95); Mean Platelet Volume 9.8 fL (8.0-11.0); Monocytes % 10.2; Neutrophils % 51.6; Platelet Count 288 x1000/uL (130-400); RBC 4.73 m/cumm (4.00-5.20); RBC Distribution Width 12.3 % (11.7-14.6); White Blood Cell Count 7.09 k/cumm (4.4-10.8)
[2020-06-19 09:51] LABS: ALT 52 U/L (14-59); AST 23 U/L (15-37); Albumin 3.5 g/dL (3.4-5.0); Alkaline Phosphatase 125 U/L (46-116); Anion Gap 10.9 mmol/L (3-11); BUN 9 mg/dL (7-18); Bilirubin, Total 0.5 mg/dL (0.2-1.0); CO2 24.1 mmol/L (21.0-32.0); CREATININE 0.78 mg/dL (0.55-1.02); Calcium 8.8 mg/dL (8.5-10.1); Chloride 106 mmol/L (98-107); Glucose 93 mg/dL (74-106); Magnesium 1.9 mg/dL (1.8-2.4); Potassium 3.8 mmol/L (3.5-5.1); Sodium 141 mmol/L (136-145); Total Protein 7.4 g/dL (6.4-8.2)
[2020-06-19 09:54] LABS: INR 1.1 (0.9-1.1); Prothrombin Time 10.7 sec (9.3-11.0)
[2020-06-19 09:56] LABS: Troponin I < 0.05 ng/mL (<0.06)
[2020-06-19 10:09] LABS: D-Dimer 642 ng/mlFEU (<500)
[2020-06-19 10:15] LABS: Bilirubin Small (Negative); Blood Large (Negative); Clarity Sl Cloudy (Clear); Glucose Negative (Negative); Ketones Negative (Negative); Leukocyte Esterase Negative (Negative); Nitrite Negative (Negative); Specific Gravity 1.025 (1.005-1.025); pH 7.5 (5-8)
[2020-06-19] MEDS: Acetaminophen 500 MG TAB 1000 MG PO (10:20)
[2020-06-19 10:26] LABS: Bacteria Negative HPF (Negative); C & S Indicated? No; Crystals Negative HPF (Negative); Epithelial Cells Few HPF (Negative); Mucus Negative (Negative); RBC >50 HPF (0-2); WBC 0-2 HPF (0-5)
[2020-06-19 11:20] VITALS: BP 113/97; PULSE 78; RESP 16; TEMP 37; O2SAT 99
[2020-06-19 11:59] LABS: Troponin I < 0.05 ng/mL (<0.06)
[2020-06-19] MEDS: Omnipaque 350 MG/ML 100 ML BTL IJ (12:14)
--- NOTE | 2020-06-19 12:14 | DI.CT_ITS ---
EXAM: CT CHEST PE CTA CLINICAL HISTORY: Elevated dimer, difficulty breathing deeply. TECHNIQUE: Imaging Protocol: Axial CT angiography was performed with multi-slice acquisition and mu lti-planar and/or 3D reconstructions. CONTRAST MATERIAL: Intravenous: Omnipaque 350 Contrast volume:100 ml COMPARISON: No exams were available for comparison FINDINGS: The exam is limited by the patient's body habitus. There is mild respiratory motion. No pulmonary e mboli are seen. The lungs are expiratory but appear clear. No infiltrate or effusion is seen. Ther e is no pneumothorax. The liver is markedly enlarged and shows fatty infiltration. IMPRESSION: No evidence of pulmonary embolism or other acute abnormality.. RADIATION DOSE DELIVERED: Total DLP DATA REPOSITORY: All CT scans at this facility are submitted to the National Radiology Data Registry (NRDR) Dose Index Registry (DIR) with the [employer] (ACR). RADIATION OPTIMIZATION: All CT scans at this facility use at least one of these dose optimization te chniques: automated exposure control; mA and/or kV adjustment per patient size (includes targeted exa ms where dose is matched to clinical indication); or iterative reconstruction.
[2020-06-19 13:37] VITALS: BP 125/66; PULSE 77; RESP 20; O2SAT 97
[2020-06-19] MEDS: Ketorolac 30 MG/ML VIAL IVP (14:18)
[2020-06-19] MEDS: Doxycycline Hyclate 100 MG CAP PO (14:18)
[2020-06-19 14:31] VITALS: BP 152/80; PULSE 91; RESP 20; TEMP 37.1; O2SAT 99
[2020-06-19 14:36] VITALS: RESP 18
[2020-06-20 11:23] LABS: Lyme Ab w Rflx to Lyme Confirm Negative (Negative)
[2020-06-21 20:10] LABS: Anaplasma phagocytophilum Negative (Negative); B. miyamotoi PCR Negative (Negative); Babesia divergens/MO-1 Negative (Negative); Babesia duncani Negative (Negative); Babesia microti Negative (Negative); Ehrlichia chaffeensis Negative (Negative); Ehrlichia ewingii/canis Negative (Negative); Ehrlichia muris eauclairensis Negative (Negative)
== END 2020-06-19 14:40 | disposition home or self-care (01) ==
PROVIDERS: Emergency Provider Physician Assistant; PCP Family Medicine
DX: M79.10 Myalgia, unspecified site (principal); R03.0 Elevated blood-pressure reading, without diagnosis of hypertension; R79.1 Abnormal coagulation profile
CPT/HCPCS: 36415; 71275; 80053; 81025; 87798; 93005; 96361; 96374; 99285; 81003; 81015; 83735; 84484; 85025; 85379; 85610; 85730; 86618; 93010; J1885; J3490

== ENCOUNTER 2021-12-02 02:54 | Outpatient (CLI) | payer MEDICAID, SELFPAY | END 2021-12-02 02:55 | disposition home or self-care (01) | PROVIDERS: PCP Family Medicine; Visit Provider Family Medicine ==

== ENCOUNTER 2021-12-03 08:04 | Outpatient (CLI) | payer MEDICAID, SELFPAY ==
--- OUTSIDE RECORDS SUMMARY | 2021-12-03 08:06 | XMS_ITS ---
:1990 Author Care Team Providers Name Role Phone [facility] Primary Care Provider [phone] OPAL NOVA Referring Provider [phone] Allergies Code Code System Name Reaction Severity Status Onset 7052 RxNorm Morphine Hallucinations Severe Active ? Spider Venom ? ? Active ? Medications Name Status Start Date Stop Date ? ? Doxycycline 100 mg capsule Active ? Not a vailable Take 1 capsule twice a day by oral route. Drysol 20 % topical solution Active ? Not available hydroxyzine HCl 50 mg tablet Active ? Not available Take 2 tablets every day by oral route at bedtime. Implanon 68 mg subdermal implant Active ? Not available Inject by subcutaneous route. venlafaxine 37.5 mg tablet Active ? Not a vailable Take 1 tablet every day by oral route. Problems Name Status Onset Date Source ? Obesity Active 05/08/2020 ? Anxiety Active 05/08/2020 ? Panic Attack Active 05/08/2020 ? Posttraumatic Stress Disorder Active 05/08/2020 ? Adult Attention Deficit Hyperactivity Active 05/08/2020 ? Disorder Migraine Active 05/08/2020 ? HELLP Syndrome Active 05/08/2020 ? Hidradenitis Suppurativa Active 05/08/2020 ? Edema Active 05/08/2020 ? History of Depression Active 05/08/2020 ? Daytime Somnolence Active 05/15/2020 ? Obstructive Sleep Apnea Syndrome Active ? ? Alveolar Hypoventilation Active ? ? Procedures Date Name Performed by ? 05/15/2020 Polysomnogram Information not avai lable Results Lab Results None recorded. 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 Social History Tobacco Smoking Status Former Smoker Notes: Quit a year ago Vaccine List None recorded. Plan of Care Reminders Provider Appointments None ? ? recorded. Lab None ? ? recorded. Referral None ? ? recorded. Procedures None ? ? recorded. Surgeries None ? ? recorded. Imaging None ? ? recorded. Vitals 06/21/2020 09:30AM Office 30 Height Weight BMI 162.56 cm 147.42 kg 55.8 kg/m2 05/15/2020 01:45PM New Patient 45 Height Weight BMI Blood Pressure 162.56 cm 147.46 kg 55.8 kg/m2 138/84 mm[Hg]
--- OUTSIDE RECORDS SUMMARY | 2021-12-03 08:06 | XMS_ITS ---
:1990 Author Organization [facility] Address [address] [place] [address] Care Team Providers Name Role Phone [place] Unavailable Unavailable PROBLEMS Type Condition ICD9-CM Code [id number] Code Onset Condition SNO MED Code Dates Status Problem Morbid (severe) E66.01 Active 2381 65334 obesity due to excess calories Problem Hidradenitis L73.2 Active 3612878 3 suppurativa Problem Sleep apnea G47.30 Active 08672778 Problem Implanon in place Z97.5 Active ALLERGIES Substance Reaction Event Type Date Status Spider bites Welts/burning Non Drug Allergy Jan, Active ENCOUNTERS Encounter Location Date Diagnosis [facility] [address] [facility] Jan, [place] [address] SURGERY [address] [facility] Jan, [place] [address] SURGERY [address] [facility] Jan, [place] [id number] [facility] [address] [facility] Dec, Imp lanon in place Z97.5 [place] [address] [facility] Dec, Nexplanon [address] Z97.5 [place] [id number] [facility] [address] [facility] Dec, [address] [facility] [address] [facility] Dec, [place] [address] [address]MINISTR[address] [facility] Jul, [address] [facility] [address] [facility] Jul, [place] [address] screening Z0 2.83 ; Alcohol screenin g Z13.89 ; Boil L02.92 ; Plantar fasciitis M72.2 ; Morbid (severe) obesity due to excess calories E66.01 and Hidradenitis suppurativa L73. 2 IMMUNIZATIONS No Known Immunizations SOCIAL HISTORY Qualifiers Date Former Smoker REASON FOR REFERRAL FUNCTIONAL STATUS PLAN OF CARE Activity Details Future Test US Extremity w/Doppler VITAL SIGNS Height 63 in 2020-01-19 Height 63 in 2019-08-05 Weight 316.0 lbs 2020-01-19 Weight 324.4 lbs 2019-08-05 BMI 55.97 kg/m2 2020-01-19 BMI 57.46 kg/m2 2019-08-05 Temperature 97.5 degrees Fahrenheit 2020-01-19 Temperature 98 degrees Fahrenheit 2019-08-05 Heart Rate 91 /min 2020-01-19 Heart Rate 78 /min 2019-08-05 Respiratory Rate 18 /min 2019-08-05 Oximetry 96 % 2020-01-19 Oximetry 98 % 2019-08-05 Blood pressure systolic 125 mm Hg 2020-01-19 Blood pressure diastolic 80 mm Hg 2020-01-19 MEDICATIONS Medication Instructions Dosage Frequency Start End Duration Statu s Date Date hydrOXYzine Orally nightly 1-2 tablets as Not-Taki HCl 50 mg needed ng Drysol 20 % 1 application Active at bedtime Venlafaxine Orally twice a 1 tablet with 12h Active HCl 37.5 MG day food PROCEDURES Procedure Date Ordered Result Body Site No HTN DX,BP <120/80 (66746) Aug 05, 2019 Med Rec done (24768) Aug 05, 2019 BMI elevated, counseled (73517) Aug 05, 2019 Tob non-user (31942) Aug 05, 2019 SBIRT screen w intervention (82356) Aug 05, 2019 SBIRT SCREEN negative Aug 05, 2019 SBIRT screening 2019-08-05 N/A RESULTS Name Result Date Reference Range BASEMET 2020-08-03 GLUC 91 74-106 BUN 9 7-25 CREATS 0.61 0.60-1.20 EGFR >60 >=60 NA 138 136-144 K+ 3.8 3.5-5.1 CL 105 98-110 CO2 25 22-32 CA 8.9 8.6-10.3 CBC WITH AUTO DIFF 2020-08-03 WBC 9.2 4.0-12.0 RBC 4.7 4.5-6.0 HGB 13.5 12.5-16.0 HCT 41.5 37.0-47.0 MCV 89 78-100 MCH 29.0 27.0-32.0 MCHC 32.5 32.0-36.0 RDW 11.9 11.0-14.0 PLT 278 140-440 MPV 10.3 7.4-11.0 ANC# 4.6 1.4-7.9 IG# 0.02 0.00-0.10 LY# 3.21 1.50-4.00 MO# 0.85 0.20-0.80 EO# 0.46 0.00-0.70 BA# 0.06 0.00-0.20 NE% 50.3 IG% 0.2 0.0-1.0 LY% 34.7 MO% 9.2 EO% 5.0 BA% 0.6 CULTURE WOUND 2020-08-03 SENSITIVITY ORGANISM 1 2020-08-03 Ampicillin 16 Ampicillin/Sulbactam 4 Piperacillin/Tazobactam 8 Cefazolin <=4 Ceftazidime <=1 Ceftriaxone <=1 Cefepime <=1 Doripenem <=0.12 Ertapenem <=0.5 Amikacin <=2 Gentamicin <=1 Tobramycin <=1 Ciprofloxacin <=0.25 Levofloxacin <=0.12 Trimethoprim/Sulfa <=20 UA-Urine ,AT HOSPITAL 2020-01-31 HCG-U NEGATIVE NEGATIVE X Humerus L 2V 2020-01-31 See Below For Report US Extremity Nonvasc LTD *CPT 35501 2020-01-31 See Below For Report X Humerus L V 2020-01-03 Image Accessible CULTURE WOUND 2019-08-01 X Forearm R 2V 2019-02-14 See Below For Report X Chest 2V 2018-08-25 See Below For Report REASON FOR VISIT 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, left upper ext removal nexplanon device , left upper ext removal nexplanon device, US order, Discuss nexplanon removal, left side, Nexplanon removal, Chart update, no response toletter inactivated, ER fu and would like referral to podietry Insurance Providers [facility] Member Patient Patient Patient Patient Patient Subscriber Subscriber Subscriber Group Insurance Plan Plan Plan Plan ID Relationship Address Phone Name Date of ID Name Date of No Type Insurance Insurance Insurance Coverage to Subscriber Address Phone Name Dates SELF PAY [address] SELF PAY self [place] 1990 [id number] [place] [facility] [place] [address] SELF PAY [place] [id number] OTHER [facility] OTHER [facility] [address] MEDICAID [facility] MEDICAID self [place] [id number] [place] [employer] [facility] [id number] GENERAL [address] [place] 1990 [id number] INSURANCE [address] [facility] [id number]
[2021-12-03 08:41] VITALS: BP 125/62; PULSE 84; RESP 20; TEMP 37; O2SAT 97
[2021-12-03 09:57] VITALS: BP 129/82; PULSE 78; RESP 18; TEMP 36.8; O2SAT 99
[2021-12-03 10:22] VITALS: BP 119/79; PULSE 74; RESP 18; TEMP 36.7; O2SAT 99
[2021-12-03 11:17] VITALS: BP 119/83; PULSE 83; RESP 18; TEMP 36.6; O2SAT 98
== END 2021-12-03 08:05 | disposition home or self-care (01) ==
PROVIDERS: PCP Family Medicine; Visit Provider Family Medicine
DX: U07.1 COVID-19 (principal)
CPT/HCPCS: 96365; Q0047

== ENCOUNTER 2022-04-24 17:04 | Emergency (ER) | payer MEDICAID, SELFPAY ==
[2022-04-24 17:06] VITALS: BP 150/79; PULSE 90; RESP 16; TEMP 36.6; O2SAT 98
[2022-04-24] MEDS: Ketorolac 30 MG/ML VIAL IM (17:41)
--- NOTE | 2022-04-24 18:01 | ED.GENADUL_ITS ---
Discharge Plan Disposition Patient Disposition: HOME Condition: Stable Discharge Details Clinical Impression: Otitis externa Primary Care Provider: Danica Wei ED Provider: Brayan Gorman Home Meds and New Rx's Prescriptions: New diclofenac potassium 50 mg tablet 50 mg PO TID PRN (Reason: pain) Qty: 15 0RF No Action Implanon 1 unit Label Comments: pt reports that she has had the implanon for about 2 yrs, in her L arm 11/19/15 amoxicillin-pot clavulanate [Augmentin] 875-125 mg tablet 1 tab PO BID Label Comments: twice daily for 10 days ciprofloxacin-dexamethasone [Ciprodex] 0.3-0.1 % drops,suspension 4 drp otic (ear) BID Label Comments: 4 drops in each ear twice a day for 7 days venlafaxine 37.5 mg capsule,extended release 24hr 37.5 mg PO DAILY Qty: 30 0RF lorazepam [Ativan] 0.5 mg tablet 0.5 mg PO QHS PRN (Reason: anxiety) Qty: 4 0RF Discharge Instructions Instructions: Otitis Externa (ED) Additional Instructions: Please take your prescription as prescribed by urgent care and follow-up with ENT. You may take the prescribed pain medication as needed for discomfort and return to the emergency department for any new or significant worsening of your symptoms. Otherwise if you are not able to be seen by ENT and if still having symptoms please follow-up with your primary care provider next week. Due to the pain medication you received in the emergency department do not take any NSAIDs for 8 hours after your shot and then while on the prescribed medication please also refrain from taking any other NSAIDs such as Motrin, aspirin, or Aleve while on the prescribed diclofenac. You may take acetaminophen/Tylenol as needed as this will not interact with the prescription. Referrals: Danica Wei [Primary Care Provider] - 1 week (If not improving) Medical Decision Making Patient presenting to the emergency department for chief complaint of left ear pain. She states that she was seen by express care a couple days ago and placed upon antibiotics. Pain has been intermittent but today was significant and so she was presenting to the emergency department for reevaluation. She denies any injury or trauma, fever chills, or systemic symptoms. Physical exam shows tenderness to left external ear canal with edema. Erythema and discharge are very minimal but there does seem to be some fluid behind left TM. Right TM which patient denies any pain or discomfort actually appears worse with cerumen present, erythema, or discharge, and slightly reddened TM. Patient is already on Cipro and Augmentin and she does state a referral for ENT has been placed. Patient has no signs of malignant otitis, systemic illness, or other worrisome findings. We will plan on removing small amount of cerumen bilateral and reassessing patient. Will treat patient's pain with ketorolac. After gentle irrigation patient reassessed and was able to tolerate procedure well. I informed patient that she should also be placing the Cipro drops in the right ear canal and monitoring symptoms. Patient did have improvement of pain after Toradol injection. Will prescribe patient diclofenac to use for further pain control pending her follow-up with ENT. Informed patient to return to the emergency department for any new or worsening symptoms. Suspect also some possible serous otitis media versus improvement of symptoms after being on the antibiotics but continuing to have discomfort. After discussion of diagnosis and plan of care patient has no further needs, questions, or concerns and states clear understanding to return to the emergency department for any worsening symp toms. HPI General Mode of arrival: ambulatory . Date/Time Provider Initiated Documentation: 04/24/22 17:06 . Limitations to Documentation: no limitations . Information obtained by: patient and RN notes reviewed . History of Present Illness 31 year old F presents to the emergency department with the chief complaint of Left ear pain, described as moderate and severe, with intensity rated at 8. Quality is described as sharp, and is localized to the left (ear). Patient reports no radiation. Patient started experiencing this day(s) (4) and it has been constant. No relieving factors improve symptom(s), No exacerbating factors reported . Patient notes no other symptoms.. Patient did receive the following treatments prior to arrival, other (Her prescribed antibiotics) Related Data Home Medications Medication Instructions Recorded Confirmed Implanon 1 unit 10/22/15 03/21/19 lorazepam 0.5 mg tablet (Ativan) 0.5 mg PO QHS PRN anxiety #4 tabs 11/28/19 venlafaxine 37.5 mg 37.5 mg PO DAILY #30 caps 11/28/19 capsule,extended release 24 hr amoxicillin 875 mg-potassium 1 tab PO BID 04/24/22 04/24/22 clavulanate 125 mg tablet ciprofloxacin 0.3 %-dexamethasone 4 drp otic (ear) BID 04/24/22 04/24/22 0.1 % ear drops,suspension (Ciprodex) diclofenac potassium 50 mg tablet 50 mg PO TID PRN pain #15 tabs 04/24/22 Previous Rx's Medication Instructions Recorded lorazepam 0.5 mg tablet (Ativan) 0.5 mg PO QHS PRN anxiety #4 tabs 11/28/19 venlafaxine 37.5 mg 37.5 mg PO DAILY #30 caps 11/28/19 capsule,extended release 24 hr diclofenac potassium 50 mg tablet 50 mg PO TID PRN pain #15 tabs 04/24/22 Allergies Allergy/AdvReac Type Severity Reaction Status Date / Time hydromorphone [From Dilaudid] Allergy Unverified 04/24/22 17:13 SPIDER BITES Allergy Mild Swelling/Ed Uncoded 04/24/22 17:13 christiano General Stated Complaint: EarProblem NORMA: 4 Review of Systems Narrative: 6 systems were reviewed and are unremarkable except as noted in HPI and below Constitutional Constitutional: Denies chills, Denies fatigue and Denies fever(s) Eyes Eyes: Denies change in vision ENT Ears, Nose, Mouth, and Throat: Reports as per HPI, Denies vertigo, Denies dizziness, Reports ear discharge, Reports otalgia, Denies facial pain, Denies nasal congestion, Denies nasal discharge and Denies sore throat Neurologic Neurologic: Denies vertigo and Denies dizziness Endocrine Endocrine: Denies fatigue PFSH All Active Problems Otitis externa (Acute) Adult BMI 50.0-59.9 kg/sq m (Acute) Obesity, morbid, BMI 50 or higher (Acute) Hidradenitis suppurativa (Acute) Medical History Anxiety Attention deficit disorder (ADD) Depression HELLP syndrome (HELLP), third trimester Hidradenitis suppurativa PTSD (post-traumatic stress disorder) Surgical History History of Social History Smoking/Tobacco Use Status: Former Tobacco Use Smoking risk assessment performed?: Yes Alcohol Intake: never Drug use: Never Substance use type: former substance user Do you feel safe at home: Yes Do you feel safe in your relationship?: Yes Exam Const General: cooperative, no acute distress and not ill appearing Orientation: alert, awake and oriented x3 HENMT Head: normal to inspection, normocephalic and atraumatic Ears: hearing grossly normal bilaterally, external ears normal, mastoids normal, no periauricular adenopathy, EAC abnormal excessive cerumen on the right, erythema bilaterally, edema bilaterally, EAC tenderness on the left and otic discharge purulent bilaterally and TM abnormal bulging bilaterally, erythematous on the right and with fluid behind the TM on the left General nose exam: external nose normal Face and sinus: normal facial exam Mouth: moist mucous membranes Resp Effort & Inspection: normal respiratory effort, able to speak in complete sentences and no respiratory distress Auscultation: clear to auscultation bilaterally Cardio Rate: regular rate Rhythm: regular rhythm Heart Sounds: S1 normal and S2 normal Skin General skin exam: no rashes or lesions noted Neuro General: patient alert, patient awake, patient oriented x3, moves all extremities and no focal motor deficits Sensory Exam: no sensory deficits noted Course Vital Signs Vital signs: Vital Signs Temperature 36.6 C 04/24/22 17:06 Pulse 90 04/24/22 17:06 Respiratory Rate 16 04/24/22 17:06 Blood Pressure 150/79 H 04/24/22 17:06 Pulse Oximetry 98 04/24/22 17:06 Temperature 36.6 C 04/24/22 17:06 Temperature Source Skin 04/24/22 17:06 Pulse 90 04/24/22 17:06 Respiratory Rate 16 04/24/22 17:06 Respiratory Effort 04/24/22 17:15 Blood Pressure 150/79 H 04/24/22 17:06 Blood Pressure Position Sitting 04/24/22 17:06 Pulse Oximetry 98 04/24/22 17:06 Oxygen Delivery Method Room Air 04/24/22 17:06 Oxygen Flow Rate 0 04/24/22 17:06 Pain Level 8 04/24/22 17:41 Comment 04/24/22 17:06 Procedures Ear Wax Removal Both Ears: Cerumenolytic Used: other Results: Re-examined: cerumen removed completely TM Visible: TM(s) intact, normal appearance Ear Canal: atraumatic Patient Tolerated Procedure: well Technique: ear canal irrigated PAWSS Have you Been Recently Intoxicated or Drunk Within the Last 30 days?: No Have you Ever Experienced Previous Episodes of Alcohol Withdrawal?: No Have you ever Experienced Withdrawal Seizures?: No Have you ever Experienced Delirium Tremens(DT)s?: No Have you ever undergone Alcohol Rehabilitation Treatment (i.e, inpt ot outpatient treatment programs)?: No Have you ever Experienced Blackouts?: No Have you ever Combined Alcohol with other Downers within the last 90 days?: No Have you ever Combined Alcohol with any other Substance of Abuse during the last 90 days?: No Positive Blood Alcohol level on Presentation? [PCS.BAL]: No Evidence of Increased Autonomic Activity (i.e. HR>120, tremor, sweating, agitation, nausea)?: No Result: 0
== END 2022-04-24 18:16 | disposition home or self-care (01) ==
PROVIDERS: Emergency Provider Nurse Practitioner Family; PCP Family Medicine
DX: H60.92 Unspecified otitis externa, left ear (principal)
CPT/HCPCS: 99283; J1885

== ENCOUNTER 2022-05-14 20:39 | Outpatient (REF) | payer MEDICAID, SELFPAY | END 2022-05-14 20:40 | disposition home or self-care (01) | LOC: LBN 20:39 | PROVIDERS: PCP Family Medicine; Visit Provider Registered Nurse Maternal Newborn | DX: L29.8 Other pruritus (principal); H93.8X3 Other specified disorders of ear, bilateral | CPT/HCPCS: 87070 ==

== ENCOUNTER 2025-01-02 17:12 | Emergency (ER) | payer MEDICAID, SELFPAY ==
[2025-01-02 17:19] VITALS: BP 166/86; PULSE 97; RESP 18; TEMP 36.7; O2SAT 98
[2025-01-02 17:37] VITALS: BP 166/86; PULSE 97; RESP 18; TEMP 36.7; O2SAT 98
[2025-01-02 18:23] VITALS: BP 121/76; PULSE 103; RESP 16; O2SAT 97
[2025-01-02] MEDS: Penicillin V POTASSIUM 500 MG TAB, 4 TABS/BTL PO (18:23)
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
== END 2025-01-02 18:26 | disposition home or self-care (01) ==
PROVIDERS: Emergency Provider Physician Assistant
DX: K08.89 Other specified disorders of teeth and supporting structures (principal); Z87.891 Personal history of nicotine dependence
CPT/HCPCS: 99283